=== PATIENT | female | born 1985 ===

== ENCOUNTER → 2016-12-22 | Outpatient (CLI) | payer BC, OTHER ==
[2016-12-27 03:25] LABS: CHLAMYDIA TRACH RNA*** NOT DETECTED (NOT DETECTED); GC (NEIS GONORRHOEAE)RNA** NOT DETECTED (NOT DETECTED)
[2016-12-27 11:08] LABS: HERPES SIMPLEX AB IGG-1 >5.00; HERPES SIMPLEX AB IGG-2 0.08; HSV1 AB IGM Negative (Negative); HSV2 AB IGM Negative (Negative)
--- NOTE | 2017-01-23 06:19 | CODING QUERY MEDICAL NECESSITY ---
SUPPORTING DIAGNOSIS NEEDED A supporting diagnosis is required for the test/procedure performed on this patient in order for us to be reimbursed by the patient's insurance. Please provide a supporting diagnosis for the following test/procedure listed below next to the test name along with your signature. *If there is no additional diagnosis for this patient that would support the following test/procedure please document that below next to the test/procedure. Test(s)/Procedure(s) that require a supporting diagnosis: * ACUTE HEPATITIS PANCEL DIAGNOSIS: Provider Signature: Date: Thank you Yadira Bo [employer] Once completed, please kindly fax back to [phone] For questions please call [phone]
== END | disposition home or self-care (01) ==
LOC: C.LABSPEC 17:57
PROVIDERS: ATTEND Family Medicine
DX: Z20.2 Contact with and (suspected) exposure to infections with a predominantly sexual mode of transmission (principal); Z71.89 Other specified counseling